=== PATIENT | female | born 1995 | race Caucasian/White ===

== ENCOUNTER 2018-10-03 14:07 | Outpatient (CLI) | payer BC | END 2018-10-03 15:05 | disposition home or self-care (01) | LOC: OBT 14:07 → L-D 14:07 → OBT 15:05 | DX: O30.003 Twin pregnancy, unspecified number of placenta and unspecified number of amniotic sacs, third trimester (principal); Z3A.35 35 weeks gestation of pregnancy | CPT/HCPCS: 76818 ==

== ENCOUNTER 2018-10-06 14:32 | Outpatient (CLI) | payer BC | END 2018-10-06 16:25 | disposition home or self-care (01) | LOC: OBT 14:32 → L-D 14:32 → OBT 16:25 | DX: O30.003 Twin pregnancy, unspecified number of placenta and unspecified number of amniotic sacs, third trimester (principal); Z3A.35 35 weeks gestation of pregnancy | CPT/HCPCS: 76818 ==

== ENCOUNTER 2018-10-09 13:04 | Outpatient (CLI) | payer BC | END 2018-10-09 16:45 | disposition home or self-care (01) | LOC: OBT 13:04 → L-D 13:04 → OBT 16:45 | DX: O30.002 Twin pregnancy, unspecified number of placenta and unspecified number of amniotic sacs, second trimester (principal); Z3A.36 36 weeks gestation of pregnancy | CPT/HCPCS: 76818 ==

== ENCOUNTER 2018-10-12 09:20 | Outpatient (CLI) | payer BC | END 2018-10-12 11:50 | disposition home or self-care (01) | LOC: OBT 09:20 → L-D 09:21 → OBT 11:50 | DX: O36.8330 Maternal care for abnormalities of the fetal heart rate or rhythm, third trimester, not applicable or unspecified (principal); O30.003 Twin pregnancy, unspecified number of placenta and unspecified number of amniotic sacs, third trimester; Z3A.36 36 weeks gestation of pregnancy | CPT/HCPCS: 76818 ==

== ENCOUNTER 2018-10-15 09:44 | Outpatient (CLI) | payer BC | END 2018-10-15 11:18 | disposition home or self-care (01) | LOC: OBT 09:44 → L-D 09:45 → OBT 11:18 | DX: O30.003 Twin pregnancy, unspecified number of placenta and unspecified number of amniotic sacs, third trimester (principal); Z3A.36 36 weeks gestation of pregnancy | CPT/HCPCS: 76818 ==

== ENCOUNTER 2018-10-16 10:49 | Inpatient (IN) | payer BC ==
[2018-10-16] MEDS ORDERED: MISOPROSTOL 200 MCG TAB PR ×2 (11:30→13:00)
[2018-10-16] MEDS ORDERED: OXYTOCIN 30 UNITS/LR 500 ML IV ×3 (11:30→13:36)
[2018-10-16] MEDS ORDERED: CARBOPROST 250 MCG INJ IM ×2 (11:30→13:00)
[2018-10-16] MEDS ORDERED: CEFAZOLIN 2 GM/50 ML (PMX) 50 ML IVPB (11:30)
[2018-10-16] MEDS ORDERED: METHYLERGONOVINE 0.2 MG INJ IM ×2 (11:30→13:00)
[2018-10-16] MEDS: LACTATED RINGER'S 1,000 ML IV ×3 (11:32→17:38)
[2018-10-16 11:39] LABS: ADD MAN DIFF? NO
[2018-10-16 11:51] LABS: WHITE BLOOD COUNT 6.6 10^3/ul (4.8-10.8)
[2018-10-16 11:51] LABS: BASOPHILS % 0.2 % (0.0-2.0); EOSINOPHILS % 0.5 % (0.0-7.0); HEMATOCRIT 32.4 % (37.0-47.0); HEMOGLOBIN 10.8 g/dl (12.0-16.0); LYMPHOCYTES # 1.5 10^3/ul (0.8-2.9); LYMPHOCYTES % 22.3 % (15.0-51.0); MEAN CORPUSCULAR HEMOGLOBIN 29.4 pg (29.0-33.0); MEAN CORPUSCULAR HGB CONC 33.3 g/dl (32.0-37.0); MEAN CORPUSCULAR VOLUME 88.3 fl (82.0-101.0); MEAN PLATELET VOLUME 10.7 fl (7.4-10.4); MONOCYTE # 0.4 10^3/ul (0.3-0.9); MONOCYTES % 6.4 % (0.0-11.0); NEUTROPHIL # 4.6 10^3/ul (1.6-7.5); NEUTROPHILS % 69.8 % (39.0-77.0); PLATELET COUNT 143 10^3/UL (140-415); RED BLOOD COUNT 3.67 10^6/ul (4.20-5.40); RED CELL DISTRIBUTION WIDTH 12.9 % (11.5-14.5)
[2018-10-16 12:07] LABS: INR 0.93; PROTIME 12.6 Sec (11.9-14.9)
[2018-10-16 12:08] LABS: PARTIAL THROMBOPLASTIN TIME 27.2 Sec (23.0-35.0)
[2018-10-16] MEDS: OXYTOCIN 30 UNITS/LR 500 ML IV ×2 (12:43→14:02)
[2018-10-16] MEDS ORDERED: ONDANSETRON 4 MG INJ (12:48)
[2018-10-16] MEDS ORDERED: METOCLOPRAMIDE 10 MG INJ (12:48)
[2018-10-16] MEDS ORDERED: BUPIVACAINE 0.75%/DEXT (SPINAL) 2 ML INJ (12:48)
[2018-10-16] MEDS ORDERED: KETOROLAC 30 MG INJ (12:48)
[2018-10-16] MEDS ORDERED: morphine SULFATE/PF (10 MG/10 ML) INJ (12:48)
[2018-10-16] MEDS ORDERED: NACL 0.9% 3 ML SYG IV (13:00)
[2018-10-16] MEDS ORDERED: HYDROCODONE/APAP (5/325) TAB PO (13:00)
[2018-10-16] MEDS ORDERED: KETOROLAC 30 MG INJ IV (13:00)
[2018-10-16] MEDS ORDERED: CEFAZOLIN 1 GM/50 ML (PMX) 50 ML IVPB (13:00)
[2018-10-16] MEDS ORDERED: EPHEDrine 25 MG/5 ML SYG (13:37)
[2018-10-16 14:16] LABS: HEPATITIS B SURFACE ANTIGEN NEGATIVE (NEGATIVE)
[2018-10-16] MEDS ORDERED: ONDANSETRON 4 MG INJ IV ×2 (14:30)
[2018-10-16] MEDS ORDERED: NALOXONE (0.4 MG/ML) INJ IV (14:30)
[2018-10-16] MEDS ORDERED: morphine 2 MG INJ IV ×3 (14:30)
[2018-10-16] MEDS ORDERED: morphine (1 MG/ML) 10ML SYRINGE IV ×3 (14:30)
[2018-10-16] MEDS ORDERED: DIPHENHYDRAMINE 50 MG INJ IV ×2 (14:30)
[2018-10-16] MEDS: CEFAZOLIN 1 GM/50 ML (PMX) 50 ML IVPB (21:01)
[2018-10-16 22:53] LABS: RAPID PLASMA REAGIN NONREACTIVE (NR)
[2018-10-17] MEDS: LACTATED RINGER'S 1,000 ML IV ×2 (01:36→10:19)
[2018-10-17] MEDS: CEFAZOLIN 1 GM/50 ML (PMX) 50 ML IVPB ×2 (04:46→12:31)
[2018-10-17] MEDS: LANOLIN HPA 1 PKT TOP (10:19)
[2018-10-17] MEDS: INFLUENZA VIRUS VACCINE 0.5 ML (DISPENSING) IM* (12:25)
[2018-10-17] MEDS: KETOROLAC 30 MG INJ IV (12:31)
[2018-10-17 13:55] LABS: ADD MAN DIFF? NO
[2018-10-17 13:57] LABS: BASOPHILS % 0.1 % (0.0-2.0); EOSINOPHILS % 0.1 % (0.0-7.0); HEMATOCRIT 27.4 % (37.0-47.0); HEMOGLOBIN 8.9 g/dl (12.0-16.0); LYMPHOCYTES # 1.4 10^3/ul (0.8-2.9); LYMPHOCYTES % 18.5 % (15.0-51.0); MEAN CORPUSCULAR HEMOGLOBIN 28.9 pg (29.0-33.0); MEAN CORPUSCULAR HGB CONC 32.5 g/dl (32.0-37.0); MEAN PLATELET VOLUME 10.7 fl (7.4-10.4); MONOCYTE # 0.5 10^3/ul (0.3-0.9); MONOCYTES % 6.8 % (0.0-11.0); NEUTROPHIL # 5.4 10^3/ul (1.6-7.5); PLATELET COUNT 149 10^3/UL (140-415); RED BLOOD COUNT 3.08 10^6/ul (4.20-5.40); RED CELL DISTRIBUTION WIDTH 12.8 % (11.5-14.5)
[2018-10-17 13:57] LABS: WHITE BLOOD COUNT 7.3 10^3/ul (4.8-10.8)
[2018-10-17] MEDS: HYDROCODONE/APAP (5/325) TAB PO (15:57)
[2018-10-17] MEDS: IBUPROFEN 600 MG TAB PO (18:47)
[2018-10-18] MEDS: IBUPROFEN 600 MG TAB PO ×5 (00:26→23:29)
[2018-10-18] MEDS: HYDROCODONE/APAP (5/325) TAB PO (08:34)
[2018-10-18] MEDS ORDERED: MAGNESIUM HYDROXIDE 30ML CUP PO (14:00)
[2018-10-19] MEDS: IBUPROFEN 600 MG TAB PO (06:43)
== END 2018-10-19 14:35 | disposition home or self-care (01) | DRG 788 ==
LOC: L-D 10:49 → PP1 17:00
PROVIDERS: Obstetrics & Gynecology
PROC: 10D00Z1 Extraction of Products of Conception, Low, Open Approach (ICD-10-PCS; principal; 2018-10-16 12:30)
DX: O69.81X1 Labor and delivery complicated by cord around neck, without compression, fetus 1 (principal); O32.1XX2 Maternal care for breech presentation, fetus 2; O30.003 Twin pregnancy, unspecified number of placenta and unspecified number of amniotic sacs, third trimester; Z3A.37 37 weeks gestation of pregnancy; Z37.2 Twins, both liveborn
CPT/HCPCS: 85025; 85610; 85730; 86592; 86850; 86900; 86901; 87340; 88307; 99464